=== PATIENT | female | born 1990 | race Caucasian/White ===

== ENCOUNTER 2022-09-03 19:53 | Emergency (ER) | payer OTHER ==
[~2022-09-03] VITALS: Ht 165.1 cm; Wt 63.5 kg
[2022-09-03 20:15] VITALS: BP 133/72
--- NOTE | 2022-09-03 20:15 | NUR ---
PT BIBSELF FOR DRAINAGE OF LIPOSUCTION SITE. PT PLACED COMFORTABLY ON BED. SEEN BY MD AT BEDSIDE.
--- NOTE | 2022-09-03 20:28 | NUR ---
Patient discharged to home in stable condition. Written and verbal after care instructions given. Patient verbalizes understanding of instruction.
== END 2022-09-03 20:57 | disposition home or self-care (01) ==
LOC: ER 20:01
DX: L76.34 Postprocedural seroma of skin and subcutaneous tissue following other procedure (principal)